=== PATIENT | male | born 1995 | race Caucasian/White ===

== ENCOUNTER 2017-08-09 20:53 | Emergency (ER) | payer OTHER ==
[~2017-08-09] VITALS: Ht 182.9 cm; Wt 108.9 kg
[2017-08-09 20:55] VITALS: TEMP 36.7; Ht 182.9 cm; Wt 108.9 kg
[2017-08-09] MEDS ORDERED: SODIUM CHLORIDE 0.9% 1000ML 1,000 ML IV STA (21:07)
--- NOTE | 2017-08-09 21:13 | EMERGENCY ROOM VISIT NOTE ---
History Report prepared by Budibe: Julianna Salazar Under the Supervision of: Dr. Estrada Stewart D.O. First contact with patient: 20:59 Chief Complaint: CHEST PAIN Stated Complaint: CHEST PAIN,STRONG HEART BEAT History of Present Illness The patient is a 21 year old male who presents to the Emergency Room with complaints of constant dull left sided chest pain beginning 3 hours ago. The patient was at the gym when he felt like his heart was beating harder than normal. He notes he felt like it was racing. He is concerned that he could have A. fib like his father. Chest pain is worse with movement of his left upper extremity. He states that his pain worsens with movement. The patient drinks large amounts of coffee daily and has a history of ADHD. Patient denies swelling of calves, recent trips, history of immobilization or recent surgery, prior history of DVT, hemoptysis, or history of malignancy. Patient denies diabetes, hypertension, hyperlipidemia, CAD, history of sudden at a young age, and smoking. Source of History: patient Onset: 3 hours ago Position: chest (left) Quality: dull Timing: constant Modifying Factors (Worsening): movement Associated Symptoms: No headache, No SOB, No nausea, No vomiting, No diarrhea, No urinary symptoms Review of Systems See HPI for pertinent positives & negatives. A total of 10 systems reviewed and were otherwise negative. Past Medical & Surgical Medical Problems: (1) ADHD Family History FH: atrial fibrillation FH: heart attack Social History Smoking Status: Never Smoker Smokeless Tobacco Use: No Occupation Status: [employer] student Current/Historical Medications Scheduled Lisdexamfetamine Dimesylate (Vyvanse), 50 MG PO DAILY Allergies Coded Allergies: No Known Allergies (Unverified , 08/09/17) Physical Exam Vital Signs Date Time Temp Pulse Resp B/P (MAP) Pulse Ox O2 Delivery O2 Flow Rate FiO2 08/10/17 00:00 78 18 123/76 99 08/09/17 22:03 73 20 134/75 98 Room Air 08/09/17 21:16 85 08/09/17 21:12 98 Room Air 08/09/17 20:55 36.7 96 20 131/84 95 Room Air Physical Exam GENERAL: standing, alert, well appearing, well nourished, no distress, non- toxic EYE EXAM: normal conjunctiva OROPHARYNX: no exudate, no erythema, lips, buccal mucosa, and tongue normal and mucous membranes are moist NECK: supple, no nuchal rigidity, no adenopathy, non-tender LUNGS: Clear to auscultation. Normal chest wall mechanics HEART: no murmurs, S1 normal and S2 normal CHEST: reproducible pain with Abduction of internal and external left extremity ABDOMEN: abdomen soft, non-tender, normo-active bowel sounds, no masses, no rebound or guarding. BACK: Back is symmetrical on inspection and there is no deformity, no midline tenderness, no CVA tenderness. SKIN: no rashes and no bruising UPPER EXTREMITIES: upper extremities are grossly normal. LOWER EXTREMITIES: No pitting edema. NEURO EXAM: Normal sensorium, cranial nerves II-XII grossly intact, normal speech, no gross weakness of arms, no gross weakness of legs. Medical Decision & Procedures ER Provider Diagnostic Interpretation: Radiology results as stated below per my review and the radiologist's interpretation: SINGLE VIEW CHEST FINDINGS: 2 AP, portable, upright chest radiographs are obtained. No prior studies are available for comparison at the time of dictation. The examination is degraded by portable technique and patient rotation. The cardiomediastinal silhouette is unremarkable. The lungs and pleural spaces are clear. No pneumothorax is seen. The bony thorax is grossly intact. IMPRESSION: No active disease in the chest. Electronically signed by: Steven Catherine M.D. Laboratory Results 08/09/17 21:20 Red Blood Count 4.91, Mean Corpuscular Volume 91.6, Mean Corpuscular Hemoglobin 30.8, Mean Corpuscular Hemoglobin Concent 33.6, Mean Platelet Volume 10.6, Neutrophils (%) (Auto) 62.9, Lymphocytes (%) (Auto) 26.5, Monocytes (%) (Auto) 9.3, Eosinophils (%) (Auto) 0.7, Basophils (%) (Auto) 0.3, Neutrophils # (Auto) 6.30, Lymphocytes # (Auto) 2.65, Monocytes # (Auto) 0.93, Eosinophils # (Auto) 0.07, Basophils # (Auto) 0.03 08/09/17 21:20 Test 08/09/17 21:20 08/09/17 23:34 White Blood Count 10.01 K/uL (4.8-10.8) Red Blood Count 4.91 M/uL (4.7-6.1) Hemoglobin 15.1 g/dL (14.0-18.0) Hematocrit 45.0 % (42-52) Mean Corpuscular Volume 91.6 fL (80-100) Mean Corpuscular Hemoglobin 30.8 pg (25-34) Mean Corpuscular Hemoglobin Concent 33.6 g/dl (32-36) Platelet Count 182 K/uL (130-400) Mean Platelet Volume 10.6 fL (7.4-10.4) Neutrophils (%) (Auto) 62.9 % Lymphocytes (%) (Auto) 26.5 % Monocytes (%) (Auto) 9.3 % Eosinophils (%) (Auto) 0.7 % Basophils (%) (Auto) 0.3 % Neutrophils # (Auto) 6.30 K/uL (1.4-6.5) Lymphocytes # (Auto) 2.65 K/uL (1.2-3.4) Monocytes # (Auto) 0.93 K/uL (0.11-0.59) Eosinophils # (Auto) 0.07 K/uL (0-0.5) Basophils # (Auto) 0.03 K/uL (0-0.2) RDW Standard Deviation 38.2 fL (36.4-46.3) RDW Coefficient of Variation 11.3 % (11.5-14.5) Immature Granulocyte % (Auto) 0.3 % Immature Granulocyte # (Auto) 0.03 K/uL (0.00-0.02) Anion Gap 5.0 mmol/L (3-11) Est Creatinine Clear Calc Drug Dose 113.6 ml/min Estimated GFR () 89.8 Estimated GFR (Non- 77.5 BUN/Creatinine Ratio 15.2 (10-20) Calcium Level 9.3 mg/dl (8.5-10.1) Troponin I < 0.015 ng/ml (0-0.045) Laboratory results per my review. Medications Administered Medications (Trade) Dose Ordered Sig/Maximo Route Start Time Stop Time Status Last Admin Dose Admin Sodium Chloride 1,000 ml @ 999 mls/hr Q1H1M STAT IV 08/09/17 21:07 08/09/17 22:07 DC 08/09/17 21:07 999 MLS/HR ECG Indication: chest pain Rate (beats per minute): 87 Rhythm: sinus rhythm Findings: other (Normal axis, slight J point elevation in anterior and septal lead, normal intervals) ED Course ED COURSE: Vital signs were reviewed and showed hypertensive The patients medical record was reviewed The above diagnostic studies were performed and reviewed. ED treatments and interventions as stated above. 2100: The patient was evaluated in room C5. A complete history and physical examination was performed. 2117: Sodium Chloride 1000 ml @ 999 mls/hr IV. 0014: Upon reevaluation, the patient is resting.I discussed my findings with the patient and he understands and agrees with the treatment plan. Based on the patients age, coexisting illnesses, exam and lab findings the decision to treat as an outpatient was made. The patient remained stable while under my care. The patient appeared well at the time of discharge. Medical Decision Differential diagnoses includes but is not limited to acute coronary syndrome, myocardial infarction, pericarditis, pulmonary embolus, aortic dissection, pneumonia, pneumothorax, musculoskeletal, shingles, esophageal. Patient is a 21-year-old male that presents to ER for palpitations. Patient notes that he has been noticing this off and on throughout working out earlier tonight. Patient also complaints of mild chest pain which is worsened with movement of his left upper shoulder. He is at a low risk for cardiac and PE risk factors. I did not pursue any risk factors as there was no concerning signs or symptoms for this. Patient has no other complaints and was discharged following 2 negative troponins, unremarkable chest x-ray and EKG with muscle scrotal chest pain and palpitations. Discussed with Pt concerning signs and symptoms to watch out for. Pt was instructed to follow up with their PCP and discussed with the patient their option to return to the ED at anytime for persistent or worsening symptoms. The appropriate anticipatory guidance and out- patient management, including indications for return to the emergency department , were explained at length to the patient and understood. Medication Reconcilliation Current Medication List: was personally reviewed by me Blood Pressure Screening Patient's blood pressure: Elevated blood pressure Blood pressure disposition: Elevated BP felt to be situational Impression Primary Impression: Heart palpitations Scribe Attestation The scribe's documentation has been prepared under my direction and personally reviewed by me in its entirety. I confirm that the note above accurately reflects all work, treatment, procedures, and medical decision making performed by me. Departure Information Dispostion Home / Self-Care Forms HOME CARE DOCUMENTATION FORM, IMPORTANT VISIT INFORMATION Patient Instructions [facility] Additional Instructions Please follow up with your primary care doctor or if you are a student, [facility] with in the next 24 hours. Any worsening of your symptoms, please return to the ED immediately. This includes any fevers greater than 100.4, worsening pain, chest pain, shortness breath, persistent nausea, vomiting, unable to eat or drink, or any other concerning signs or symptoms from your standpoint. Please take Motrin or Tylenol as needed for your muscle skeletal chest pain
[2017-08-09 21:35] LABS: BASO % 0.3 %; BASO ABS # 0.03 K/uL (0-0.2); COMPLETE YES; EOS % 0.7 %; IG% 0.3 %; LYMPH % 26.5 %; LYMPH ABS # 2.65 K/uL (1.2-3.4); MEAN CELL VOLUME 91.6 fL (80-100); MEAN CORPUSCULAR HEMOGLOBIN 30.8 pg (25-34); MEAN CORPUSCULAR HGB CONC 33.6 g/dl (32-36); MEAN PLATELET VOLUME 10.6 fL (7.4-10.4); MONO % 9.3 %; NEUT % 62.9 %; PLATELET COUNT 182 K/uL (130-400); RED BLOOD COUNT 4.91 M/uL (4.7-6.1); WHITE BLOOD COUNT 10.01 K/uL (4.8-10.8)
--- NOTE | 2017-08-09 21:42 | DIAGNOSTIC IMAGING REPORT ---
SINGLE VIEW CHEST CLINICAL HISTORY: Atypical chest pain. FINDINGS: 2 AP, portable, upright chest radiographs are obtained. No prior studies are available for comparison at the time of dictation. The examination is degraded by portable technique and patient rotation. The cardiomediastinal silhouette is unremarkable. The lungs and pleural spaces are clear. No pneumothorax is seen. The bony thorax is grossly intact. IMPRESSION: No active disease in the chest. Electronically signed by: Steven Catherine M.D. 08/09/2017 9:41 PM Dictated Date/Time: 08/09/2017 9:40 PM
[2017-08-09 21:53] LABS: BLOOD UREA NITROGEN 20 mg/dl (7-18); BUN/CREATININE RATIO 15.2 (10-20); CALCIUM 9.3 mg/dl (8.5-10.1); CARBON DIOXIDE 30 mmol/L (21-32); CHLORIDE 106 mmol/L (98-107); GLUCOSE 92 mg/dl (70-99); POTASSIUM 3.5 mmol/L (3.5-5.1); SODIUM 141 mmol/L (136-145)
[2017-08-09] MEDS ORDERED: LISD50CA4 PO (22:02)
[2017-08-10] VITALS: BP 123/76; PULSE 78; O2SAT 99
== END 2017-08-10 00:16 | disposition home or self-care (01) ==
LOC: C.EDB 20:55 → C.EDC 08-10 00:16
DX: R00.2 Palpitations (principal); F90.9 Attention-deficit hyperactivity disorder, unspecified type; Z79.899 Other long term (current) drug therapy; Z82.49 Family history of ischemic heart disease and other diseases of the circulatory system

== ENCOUNTER 2017-11-30 15:48 | Emergency (ER) | payer OTHER ==
[~2017-11-30] VITALS: Ht 180.3 cm; Wt 108.9 kg
[~2017-11-30 15:48] MED LIST: LISD50CA4 PO
[2017-11-30 15:58] VITALS: TEMP 36.9; Ht 180.3 cm; Wt 108.9 kg
[2017-11-30 16:53] LABS: BASO % 0.3 %; BASO ABS # 0.03 K/uL (0-0.2); EOS % 0.9 %; EOS ABS # 0.09 K/uL (0-0.5); HEMATOCRIT 46.7 % (42-52); HEMOGLOBIN 15.4 g/dL (14.0-18.0); IG# 0.03 K/uL (0.00-0.02); LYMPH % 28.4 %; LYMPH ABS # 2.96 K/uL (1.2-3.4); MEAN CORPUSCULAR HEMOGLOBIN 30.7 pg (25-34); MEAN PLATELET VOLUME 10.7 fL (7.4-10.4); MONO % 7.2 %; MONO ABS # 0.75 K/uL (0.11-0.59); NEUT % 62.9 %; NEUT ABS # 6.56 K/uL (1.4-6.5); PLATELET COUNT 193 K/uL (130-400); RED CELL DISTRIBUTION WIDTH CV 11.7 % (11.5-14.5); RED CELL DISTRIBUTION WIDTH SD 39.1 fL (36.4-46.3); WHITE BLOOD COUNT 10.42 K/uL (4.8-10.8)
[2017-11-30 17:22] LABS: ALBUMIN 4.1 gm/dl (3.4-5.0); CALCIUM 8.8 mg/dl (8.5-10.1); CREATININE 1.24 mg/dl (0.60-1.40); POTASSIUM 3.9 mmol/L (3.5-5.1)
[2017-11-30] MEDS ORDERED: CLON1TAB3 PO (17:28)
[2017-11-30] MEDS ORDERED: LISD70CA PO (17:28)
[2017-11-30] MEDS ORDERED: RTL20 PO (17:28)
[2017-11-30] MEDS ORDERED: ESCI10TA17 PO (17:28)
[2017-11-30] MEDS ORDERED: QUET1TAB34 PO (17:28)
[2017-11-30 17:34] LABS: TOTAL PROTEIN 7.2 gm/dl (6.4-8.2)
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
[2017-12-01] MEDS ORDERED: QUETIAPINE FUMARATE 100 MG TAB PO STA (01:44)
--- NOTE | 2017-12-01 07:39 | EMERGENCY ROOM VISIT NOTE ---
ED Visit Note First contact with patient: 02:41 this case was signed out to me at change shift awaiting bed placement. The patient has been accepted to [facility] near [place]. Case management is waiting until 8 AM to obtain precertification and then arrange transportation. The patient is going there voluntarily.
[2017-12-01 09:16] VITALS: BP 131/59; PULSE 93; O2SAT 99
== END 2017-12-01 12:40 ==
LOC: C.EDB 15:51 → C.EDA 12-01 12:40
DX: R45.851 Suicidal ideations (principal); F39 Unspecified mood [affective] disorder; S51.812A Laceration without foreign body of left forearm, initial encounter; S39.021A Laceration of muscle, fascia and tendon of abdomen, initial encounter; X78.1XXA Intentional self-harm by knife, initial encounter; T76.31XA Adult psychological abuse, suspected, initial encounter; F90.9 Attention-deficit hyperactivity disorder, unspecified type; Z82.49 Family history of ischemic heart disease and other diseases of the circulatory system